=== PATIENT | male | born 1970 | race Caucasian/White ===

== ENCOUNTER 2016-09-15 21:13 | Emergency (ER) | payer OTHER ==
[~2016-09-15] VITALS: Ht 152.4 cm; Wt 69.0 kg
[2016-09-15 21:57] VITALS: BP 149/88
== END 2016-09-15 23:58 | disposition home or self-care (01) ==
LOC: ER 21:14
DX: H10.9 Unspecified conjunctivitis (principal); Z95.5 Presence of coronary angioplasty implant and graft
CPT/HCPCS: 99283

== ENCOUNTER 2017-01-23 11:47 | Inpatient (IN) | payer OTHER ==
[~2017-01-23] VITALS: Ht 152.4 cm; Wt 69.9 kg
[2017-01-23] MEDS ORDERED: NITROGLYCERIN OINT 1GM/INCH UDPKT TD ONE (12:30)
[2017-01-23] MEDS ORDERED: ASPIRIN 81MG TABLET PO ONE (12:30)
[2017-01-23 13:04] LABS: EOSINOPHILS % 13.6 % (0.0-5.0); HEMATOCRIT. 41.8 % (42.0-52.0); HEMOGLOBIN. 14.6 g/dL (14.0-18.0); LYMPHOCYTES % 27.6 % (20.0-50.0); MEAN CORPUSCULAR HEMOGLOBIN 31.4 pg (28.0-32.0); MEAN CORPUSCULAR VOLUME 89.7 fL (80.0-94.0); MEAN PLATELET VOLUME 8.1 fl (7.4-10.4); NEUTROPHILS % 53.8 % (40.0-76.0); PLATELET 327 x1000/uL (130-400); RED BLOOD CELL COUNT 4.66 mill/uL (4.7-6.1); RED CELL DISTRIBUTION WIDTH 12.7 % (11.6-14.6)
[2017-01-23 13:05] LABS: CLARITY URINE CLEAR (CLEAR); COLOR URINE YELLOW (YELLOW); GLUCOSE URINE NEGATIVE (NEGATIVE); KETONES URINE NEGATIVE (NEGATIVE); LEUKOCYTE ESTERASE URINE NEGATIVE (NEGATIVE); NITRITE URINE NEGATIVE (NEGATIVE); OCCULT BLOOD URINE NEGATIVE (NEGATIVE); PROTEIN URINE NEGATIVE (NEGATIVE); SPECIFIC GRAVITY URINE 1.033 (1.005-1.030); UROBILINOGEN URINE 0.2 E.U./dL (0.2-1.0)
[2017-01-23 13:13] LABS: PARTIAL THROMBOPLASTIN TIME 25.4 sec (23.4-31.0); PROTHROMBIN TIME 10.4 sec (9.4-11.6)
[2017-01-23 13:17] LABS: CARBON DIOXIDE 23 mEq/L (21-32); CHLORIDE 105 mEq/L (98-107)
[2017-01-23] MEDS ORDERED: POTASSIUM CHLORIDE 10MEQ TABLET SR PO ONE (13:30)
[2017-01-23] MEDS ORDERED: CLONIDINE 0.1MG TABLET PO PRN ×2 (15:00→18:00)
[2017-01-23] MEDS: LOSARTAN POTASSIUM 25 MG TABLET PO SCH (16:15)
[2017-01-23 16:18] VITALS: BP 123/72
[2017-01-23] MEDS: METOPROLOL TARTRATE 25MG TABLET PO SCH ×2 (16:47→20:03)
[2017-01-23] MEDS ORDERED: ENOXAPARIN 80MG/0.8ML SYR SUBCUT NR (17:30)
[2017-01-23] MEDS ORDERED: MORPHINE SULFATE 2 MG/ML CPJ (NOT FOR IM USE) IV PRN (17:45)
[2017-01-23] MEDS ORDERED: LORAZEPAM 1MG TABLET PO PRN (18:00)
[2017-01-23] MEDS ORDERED: IPRATROPIUM/ALBUTEROL 0.5-3(2.5)MG/3ML NEB INH PRN (18:00)
[2017-01-23] MEDS ORDERED: HYDROCODONE/ACETAMINOPHEN 10/325MG TABLET PO PRN (18:00)
[2017-01-23] MEDS ORDERED: MORPHINE SULFATE 4 MG/ML CPJ (NOT FOR IM USE) IV PRN (18:00)
[2017-01-23] MEDS ORDERED: ONDANSETRON HCL 4MG/2ML VIAL IV PRN (18:00)
[2017-01-23] MEDS ORDERED: PNEUMOCOCCAL 23-VAL P-SAC VAC 0.5 ML IM ONE (18:00)
[2017-01-23 18:01] VITALS: BP 116/72
[2017-01-23] MEDS: NITROGLYCERIN OINT 1GM/INCH UDPKT TD SCH (18:15)
[2017-01-23] MEDS: ACETAMINOPHEN 650MG/20.3ML UDC GT PRN (19:58)
[2017-01-23 20:00] VITALS: BP 98/49
[2017-01-23] MEDS ORDERED: ATORVASTATIN CALCIUM 20MG TABLET PO SCH (21:00)
[2017-01-23 22:00] VITALS: BP 90/50
[2017-01-24] VITALS (26 sets, daily range): BP systolic 0–151; BP diastolic 0–103
[2017-01-24] MEDS: DEXT 5%/0.45% NACL KCL 20MEQ/L 1,000 ML IV SCH ×3 (00:11→20:53)
[2017-01-24] MEDS: NITROGLYCERIN OINT 1GM/INCH UDPKT TD SCH ×4 (06:00→17:23)
[2017-01-24 07:01] LABS: BASOPHILS % 0.7 % (0.0-2.0); EOSINOPHILS % 13.7 % (0.0-5.0); HEMATOCRIT. 40.2 % (42.0-52.0); LYMPHOCYTES % 25.1 % (20.0-50.0); MEAN CORPUSCULAR HEMOGLOBIN 31.8 pg (28.0-32.0); MEAN CORPUSCULAR VOLUME 91.6 fL (80.0-94.0); MEAN PLATELET VOLUME 8.4 fl (7.4-10.4); MONOCYTES % 6.5 % (2.0-8.0); PLATELET 322 x1000/uL (130-400); RED BLOOD CELL COUNT 4.39 mill/uL (4.7-6.1); RED CELL DISTRIBUTION WIDTH 12.8 % (11.6-14.6)
[2017-01-24 07:07] LABS: CARBON DIOXIDE 24 mEq/L (21-32); CHLORIDE 107 mEq/L (98-107)
[2017-01-24 07:22] LABS: CREATINE KINASE 220 IU/L (39-308); CREATINE KINASE MB FRACTION 12.6 ng/mL (0.5-3.6); HDL CHOLESTEROL 24 mg/dL (40-59); LDL CHOLESTEROL 95 mg/dL (5-100)
[2017-01-24 07:53] LABS: BG BASE EXCESS -1.8 mmol/L (-2.0-2.0); BG CARBOXYHEMOGLOBIN 1.2 % (0.5-1.5); BG DEOXYHEMOGLOBIN 2.4 % (0.0-5.0); BG FRACTION INSPIRED OXYGEN 21; BG HCO3 ACT 22.4 mmol/L (22.0-26.0); BG METHEMOGLOBIN 0.3 % (0.0-1.5); BG OXYGEN SATURATION 97.6 % (92.0-98.5); BG OXYHEMOGLOBIN 96.1 % (94.0-97.0); BG PCO2 36.6 mmHg (35.0-45.0); BG PH 7.404 (7.350-7.450); BG PO2 99.4 mmHg (75.0-100.0); BG SAMPLE SITE RIGHT BRACHIAL; BG TOTAL HEMOGLOBIN 15.1 g/dL (12.0-18.0); BG VENT MODE ROOM AIR
[2017-01-24] MEDS: LOSARTAN POTASSIUM 25 MG TABLET PO SCH (09:47)
[2017-01-24] MEDS: ASPIRIN 325MG EC TABLET PO SCH (09:47)
[2017-01-24] MEDS: METOPROLOL TARTRATE 25MG TABLET PO SCH ×2 (09:47→20:55)
[2017-01-24] MEDS: FENOFIBRATE NANOCRYSTALLIZED 48MG TABLET PO SCH (11:16)
[2017-01-24 11:19] LABS: *AMPHETAMINES SCREEN URINE NEGATIVE (NEGATIVE); *BARBITURATES SCREEN URINE NEGATIVE (NEGATIVE); *BENZODIAZEPINES SCREEN URINE NEGATIVE (NEGATIVE); *COCAINE SCREEN URINE NEGATIVE (NEGATIVE); CANNABINOID URINE SCREEN NEGATIVE (NEGATIVE); METHADONE URINE SCREEN NEGATIVE (NEGATIVE); OPIATES URINE SCREEN NEGATIVE (NEGATIVE); PHENCYCLIDINE URINE SCREEN NEGATIVE (NEGATIVE)
[2017-01-24] MEDS ORDERED: IOHEXOL-300 100 ML BOTTLE ONE ×2 (12:22→13:43)
[2017-01-24] MEDS ORDERED: LIDOCAINE HCL 1% 20ML VIAL (Pyxis) INJ ONE ×2 (12:22→12:28)
[2017-01-24] MEDS ORDERED: FENTANYL CITRATE/PF 50MCG/ML 2ML VIAL ONE (12:46)
[2017-01-24] MEDS ORDERED: MIDAZOLAM HCL 2 MG/2 ML VIAL ONE (12:46)
[2017-01-24] MEDS ORDERED: HEPARIN SODIUM 1,000 UNIT/1ML VIAL IV ONE ×3 (12:54→13:28)
[2017-01-24] MEDS ORDERED: NITROGLYCERIN 50MCG/ML 10ML VIAL (CATH LAB) IV ONE (13:27)
[2017-01-24] MEDS ORDERED: NICARDIPINE 100MCG/ML 10ML VIAL (CATH LAB) IV ONE (13:27)
[2017-01-24] MEDS ORDERED: IOVERSOL 240MG/ML 100ML BOTTLE IV ONE (13:32)
[2017-01-24] MEDS ORDERED: CLOPIDOGREL 75MG TABLET ONE (14:08)
[2017-01-24] MEDS ORDERED: ATROPINE SULFATE 1MG/10ML SYR IV PRN (14:15)
[2017-01-24] MEDS: GEMFIBROZIL 600MG TABLET PO SCH (17:24)
[2017-01-24] MEDS: ACETAMINOPHEN 650MG/20.3ML UDC GT PRN (20:54)
[2017-01-25] VITALS (7 sets, daily range): BP systolic 103–143; BP diastolic 64–81
[2017-01-25] MEDS: NITROGLYCERIN OINT 1GM/INCH UDPKT TD SCH ×2 (05:18)
[2017-01-25 06:35] LABS: CARBON DIOXIDE 24 mEq/L (21-32); CHLORIDE 108 mEq/L (98-107)
[2017-01-25] MEDS: DEXT 5%/0.45% NACL KCL 20MEQ/L 1,000 ML IV SCH ×2 (06:42)
[2017-01-25 07:13] LABS: BASOPHILS % 0.9 % (0.0-2.0); EOSINOPHILS % 13.3 % (0.0-5.0); HEMATOCRIT. 41.9 % (42.0-52.0); HEMOGLOBIN. 14.5 g/dL (14.0-18.0); LYMPHOCYTES % 17.5 % (20.0-50.0); MEAN CORPUSCULAR HEMOGLOBIN 31.5 pg (28.0-32.0); MEAN CORPUSCULAR VOLUME 91.3 fL (80.0-94.0); MEAN PLATELET VOLUME 8.4 fl (7.4-10.4); MONOCYTES % 6.6 % (2.0-8.0); NEUTROPHILS % 61.7 % (40.0-76.0); PLATELET 291 x1000/uL (130-400); RED BLOOD CELL COUNT 4.59 mill/uL (4.7-6.1); RED CELL DISTRIBUTION WIDTH 12.9 % (11.6-14.6)
[2017-01-25] MEDS: LOSARTAN POTASSIUM 25 MG TABLET PO SCH (08:09)
[2017-01-25] MEDS: METOPROLOL TARTRATE 25MG TABLET PO SCH (08:18)
[2017-01-25] MEDS: ASPIRIN 325MG EC TABLET PO SCH (08:18)
[2017-01-25] MEDS: FENOFIBRATE NANOCRYSTALLIZED 48MG TABLET PO SCH (08:18)
[2017-01-25] MEDS: GEMFIBROZIL 600MG TABLET PO SCH (08:18)
[2017-01-25] MEDS ORDERED: CLOPIDOGREL 75MG TABLET PO SCH (09:00)
[2017-01-25] MEDS ORDERED: ATOR10TA69 (10:44)
[2017-01-25] MEDS ORDERED: ASPI-1158 (10:44)
[2017-01-25] MEDS ORDERED: CLOP75TA33 (10:44)
== END 2017-01-25 11:20 | disposition home or self-care (01) | DRG 174 ==
LOC: ER 11:47 → 3WST 13:31 → EDBEDREQ 13:33 → ENRESERV 15:33
PROVIDERS: ADMIT Internal Medicine; ATTEND Internal Medicine
PROC: 027034Z Dilation of Coronary Artery, One Artery with Drug-eluting Intraluminal Device, Percutaneous Approach (ICD-10-PCS; principal; 2017-01-24)
PROC: B2111ZZ Fluoroscopy of Multiple Coronary Arteries using Low Osmolar Contrast (ICD-10-PCS; 2017-01-24)
PROC: 4A023N7 Measurement of Cardiac Sampling and Pressure, Left Heart, Percutaneous Approach (ICD-10-PCS; 2017-01-24)
PROC: B2151ZZ Fluoroscopy of Left Heart using Low Osmolar Contrast (ICD-10-PCS; 2017-01-24)
DX: I21.4 Non-ST elevation (NSTEMI) myocardial infarction (principal); E44.0 Moderate protein-calorie malnutrition; I95.9 Hypotension, unspecified; T82.855A Stenosis of coronary artery stent, initial encounter; I11.9 Hypertensive heart disease without heart failure; B02.9 Zoster without complications; E87.6 Hypokalemia; D72.829 Elevated white blood cell count, unspecified; F17.210 Nicotine dependence, cigarettes, uncomplicated; E78.00 Pure hypercholesterolemia, unspecified; I25.110 Atherosclerotic heart disease of native coronary artery with unstable angina pectoris; Y83.1 Surgical operation with implant of artificial internal device as the cause of abnormal reaction of the patient, or of later complication, without mention of misadventure at the time of the procedure; Z79.02 Long term (current) use of antithrombotics/antiplatelets; Z79.899 Other long term (current) drug therapy; I25.2 Old myocardial infarction; Z68.30 Body mass index [BMI] 30.0-30.9, adult
CPT/HCPCS: 36415; 36600; 71010; 80048; 80053; 80061; 80305; 81003; 82375; 82550; 82553; 82805; 83690; 83735; 83880; 84443; 84484; 85025; 85347; 85379; 85610; 85730; 87040; 90732; 92928; 93005; 93306; 93458; 93970; 99285; C1769; C1887; C1893; J1644; J1650; J2250; J3010; J3490; Q9967

== ENCOUNTER 2017-11-03 13:58 | Emergency (ER) | payer OTHER ==
[~2017-11-03] VITALS: Ht 160 cm; Wt 72.0 kg
[~2017-11-03 13:58] MED LIST: ASPI-1158; ATOR10TA69; CLOP75TA33
[2017-11-03] MEDS ORDERED: NITROGLYCERIN 0.4MG TABLET SL SL PRN (14:30)
[2017-11-03] MEDS ORDERED: ASPIRIN 81MG TABLET PO ONE (14:30)
[2017-11-03 14:38] LABS: BASOPHILS % 0.9 % (0.0-2.0); HEMATOCRIT. 39.7 % (42.0-52.0); LYMPHOCYTES % 28.9 % (20.0-50.0); MEAN CORPUSCULAR HEMOGLOBIN 31.9 pg (28.0-32.0); MEAN CORPUSCULAR VOLUME 90.6 fL (80.0-94.0); MEAN PLATELET VOLUME 7.9 fl (7.4-10.4); MONOCYTES % 4.5 % (2.0-8.0); NEUTROPHILS % 53.7 % (40.0-76.0); PLATELET 337 x1000/uL (130-400); RED BLOOD CELL COUNT 4.38 mill/uL (4.7-6.1); RED CELL DISTRIBUTION WIDTH 12.8 % (11.6-14.6)
[2017-11-03 14:43] LABS: CHLORIDE 107 mEq/L (98-107)
[2017-11-03 14:44] LABS: PARTIAL THROMBOPLASTIN TIME 25.4 sec (23.4-31.0); PROTHROMBIN TIME 10.7 sec (9.4-11.6)
[2017-11-03 16:00] VITALS: BP 127/78
== END 2017-11-03 16:00 | disposition home or self-care (01) ==
LOC: ER 13:58 → ENRESERV 23:34 → CANBEDREQ 11-05 15:57
DX: R07.89 Other chest pain (principal); E78.00 Pure hypercholesterolemia, unspecified; I10 Essential (primary) hypertension; Z79.82 Long term (current) use of aspirin; Z79.01 Long term (current) use of anticoagulants
CPT/HCPCS: 36415; 71045; 80053; 83690; 83880; 84484; 85025; 85610; 85730; 93005; 99285; Z7610